=== PATIENT | male | born 1955 | race Caucasian/White ===

== ENCOUNTER 2019-09-24 15:02 | Emergency (ER) | payer SELFPAY ==
[2019-09-24] MEDS ORDERED: PANTOPRAZOLE SODIUM 40 MG VIAL IV ONE (16:11)
--- NOTE | 2019-09-24 16:16 | ER Document Report ---
ED GI/ - General Chief Complaint: GI Bleeding Stated Complaint: VOMITING BLOOD Time Seen by Provider: 09/24/19 15:49 Notes: 64-year-old male with hypertension and GERD presents to the emergency department for hematemesis just prior to arrival. EMS noted orthostatic hypotension when taking blood pressure from laying to standing. Patient states that he also noticed about 5 days ago he had a very dark black tarry stool, has been constipated, and then defecated "a small pebble today that was very dark". Is passing gas. No nausea or vomiting. Does have epigastric pain. No fevers or recent illness, does complain of significant dizziness and lightheadedness upon standing, no syncope. - Related Data Allergies/Adverse Reactions: No Known Allergies Allergy (Unverified 09/24/19 15:32) Past Medical History - Social History Smoking Status: Current Every Day Smoker Chew tobacco use (# tins/day): No Frequency of alcohol use: Heavy Drug Abuse: Marijuana Family History: None Patient has suicidal ideation: No Patient has homicidal ideation: No - Past Medical History Cardiac Medical History: Reports: Hx Hypercholesterolemia, Hx Hypertension Review of Systems - Review of Systems Constitutional: See HPI EENT: No symptoms reported Cardiovascular: See HPI Respiratory: See HPI Gastrointestinal: See HPI Genitourinary: See HPI Male Genitourinary: No symptoms reported Musculoskeletal: No symptoms reported Skin: No symptoms reported Hematologic/Lymphatic: No symptoms reported Neurological/Psychological: See HPI Physical Exam - Vital signs Vitals: Temp Pulse Resp BP Pulse Ox 97.5 F 98 20 109/72 100 09/24/19 15:03 09/24/19 15:03 09/24/19 15:03 09/24/19 15:03 09/24/19 15:03 - Notes Notes: PHYSICAL EXAMINATION: Reviewed vital signs and charting by RN GENERAL: Alert, interacts well. No acute distress. HEAD: Normocephalic, atraumatic. EYES: Pupils equal and round. Extraocular movements intact. ENT: Oral mucosa moist, tongue midline. NECK: Full range of motion. Trachea midline. LUNGS: Clear to auscultation bilaterally, no wheezes, rales, or rhonchi. No respiratory distress. HEART: Mild tachycardia with regular rhythm. No murmur ABDOMEN: soft, epigastric tenderness to palpation. No distention. Bowel sounds present EXTREMITIES: Moves all 4 extremities spontaneously. No edema, No cyanosis. PSYCH: Normal affect, normal mood. SKIN: Warm, dry, normal turgor. No rashes or lesions noted. Course - Re-evaluation Re-evalutation: 09/24/19 16:44 Patient is somewhat pale with pink conjunctivae. Patient gets acutely dyspneic even with shifting in the bed. Patient also gets extremely tachycardic even with pulling himself over onto his side up to the 140s. A guaiac stool was positive for blood. Hemoglobin 6.8. I have given him Protonix 80 mg IV bolus and will put him on a drip. Also, 2 units packed red blood cells have been ordered. Will initiate admission. 09/24/19 18:[address] Garsia, surgeon regional sales coordinator. Who states because the patient is an alcoholic he would be unable to do upper endoscopy with the risk for esophageal varices present. I called [facility] in [place] to initiate a transfer, spoke with Dr. Ferris, hospitalist, who accepted the patient for transfer. I have initiated a protonix continuous infusion and Dr. Ferris requests that we give patient a dose of octreotide. After patient gets 1 unit of packed red blood cells he is requesting that we give him a dose of Lasix if the patient is still in our unit. 09/24/19 20:10 Patient received his dose of octreotide and transport arrived at the bedside. Patient was still symptomatic and very dizzy and lightheaded, tachycardia in the 120s that spiked whenever he exerted himself even minimally on the bed. The first unit of packed red blood cells was just initiated 30 minutes prior to transport coming as there was a delay with the blood bank. At this time patient is stable for transfer to [facility]. - Vital Signs Vital signs: Temp Pulse Resp BP Pulse Ox 98.4 F 132 H 22 H 124/77 100 09/24/19 19:32 09/24/19 19:40 09/24/19 19:40 09/24/19 19:32 09/24/19 19:40 - Laboratory Result Diagrams: 09/24/19 15:20 09/24/19 15:20 Laboratory results interpreted by me: 09/24/19 09/24/19 09/24/19 15:20 15:20 15:20 WBC 10.8 H RBC 1.89 L Hgb 6.8 L Hct 19.7 L MCV 104 H MCH 35.7 H Sodium 135.7 L Carbon Dioxide 20 L BUN 30 H Glucose 162 H Calcium 8.1 L Total Protein 4.6 L Albumin 2.6 L Crossmatch See Detail Critical Care Note - Critical Care Note Total time excluding time spent on procedures (mins): 35 Comments: Critical care time spent obtaining history from patient or surrogate, discussions with consultants, development of treatment plan with patient or surrogate, evaluation of patient's response to treatment, examination of patient, ordering and performing treatments and interventions, ordering and review of laboratory studies, re-evaluation of patient's condition, ordering and review of radiographic studies and review of old charts for acute symptomatic anemia and an upper GI bleed Discharge - Discharge Clinical Impression: Acute GI bleeding Anemia Qualifiers: Anemia type: unspecified type Qualified Code(s): D64.9 - Anemia, unspecified Condition: Stable Disposition: [facility]
[2019-09-24 16:20] LABS: ABSOLUTE MONOCYTES (AUTO) 0.6 10^3/uL (0.1-1.4); ABSOLUTE NEUT (AUTO) 8.2 10^3/uL (1.7-8.2); BASOPHILS % (AUTO) 0.3 % (0-2); EOSINOPHILS % (AUTO) 0.2 % (0-6); HEMATOCRIT 19.7 % (37.9-51.0); LYMPHOCYTES % (AUTO) 18.1 % (13-45); MEAN CORPUSCULAR HEMOGLOBIN 35.7 pg (27.0-33.4); MEAN CORPUSCULAR HGB CONC 34.3 g/dL (32.0-36.0); MEAN CORPUSCULAR VOLUME 104 fl (80-97); MONOCYTES % (AUTO) 5.5 % (3-13); PLATELET COUNT 213 10^3/uL (150-450); RED BLOOD COUNT 1.89 10^6/uL (4.35-5.55); RED CELL DISTRIBUTION WIDTH 12.6 % (11.5-14.0); SEGMENTED NEUTROPHILS % (AUTO) 75.9 % (42-78); TOTAL CELLS COUNTED % (AUTO) 100 %; WHITE BLOOD COUNT 10.8 10^3/uL (4.0-10.5)
[2019-09-24 16:22] LABS: HEMOGLOBIN 6.8 g/dL (13.5-17.0)
[2019-09-24 16:25] LABS: ALBUMIN 2.6 g/dL (3.5-5.0); ALKALINE PHOSPHATASE 51 U/L (38-126); ANION GAP 10 (5-19); ASPARTATE AMINO TRANSFERASE 21 U/L (17-59); BILIRUBIN,DIRECT 0.1 mg/dL (0.0-0.4); BILIRUBIN,TOTAL 0.2 mg/dL (0.2-1.3); BLOOD UREA NITROGEN 30 mg/dL (7-20); CALCIUM 8.1 mg/dL (8.4-10.2); CARBON DIOXIDE 20 mmol/L (22-30); CHLORIDE 106 mmol/L (98-107); GLUCOSE 162 mg/dL (75-110); TOTAL PROTEIN 4.6 g/dL (6.3-8.2)
[2019-09-24 16:26] LABS: INTERNATIONAL RATION (INR) 1.06; PROTHROMBIN TIME 13.8 SEC (11.4-15.4)
[2019-09-24 16:27] LABS: PARTIAL THROMBOPLASTIN TIME 26.3 SEC (23.5-35.8)
[2019-09-24] MEDS ORDERED: NORMAL SALINE 250 ML IV PRN (16:43)
--- NOTE | 2019-09-24 16:52 | RADIOLOGY REPORT (SQ) ---
EXAM DESCRIPTION: CHEST 2 VIEWS COMPLETED DATE/TIME: 09/24/2019 4:24 pm REASON FOR STUDY: hemoptysis COMPARISON: None. EXAM PARAMETERS: NUMBER OF VIEWS: two views TECHNIQUE: Digital Frontal and Lateral radiographic views of the chest acquired. RADIATION DOSE: NA LIMITATIONS: none FINDINGS: LUNGS AND PLEURA: No opacities, masses or pneumothorax. No pleural effusion. MEDIASTINUM AND HILAR STRUCTURES: No masses or contour abnormalities. HEART AND VASCULAR STRUCTURES: Heart normal size. No evidence for failure. BONES: No acute findings. HARDWARE: None in the chest. OTHER: No other significant finding. IMPRESSION: NO ACUTE RADIOGRAPHIC FINDING IN THE CHEST. TECHNICAL DOCUMENTATION: JOB ID: [id number] [employer]- All Rights Reserved Reading location - IP/workstation name: [email or web address]
[2019-09-24] MEDS ORDERED: PANTOPRAZOLE SODIUM 40 MG VIAL IV PRN (18:10)
[2019-09-24] MEDS ORDERED: OCTREOTIDE ACETATE INJ/PF 100 MCG/1 ML SDV IV ONE (18:13)
--- NOTE | 2019-09-24 20:08 | EKG REPORT ---
SEVERITY:- ABNORMAL ECG - SINUS TACHYCARDIA RIGHT BUNDLE BRANCH BLOCK INFERIOR INFARCT, AGE INDETERMINATE : Confirmed by: Jessica Lucero MD 24-Sep-2019 20:07:16
[2019-09-24 20:32] VITALS: BP 124/77
== END 2019-09-24 20:11 | disposition short-term general hospital (02) ==
LOC: ER 15:02
DX: K92.2 Gastrointestinal hemorrhage, unspecified (principal); D64.9 Anemia, unspecified; K92.0 Hematemesis; R10.13 Epigastric pain; R00.0 Tachycardia, unspecified; R10.816 Epigastric abdominal tenderness; R06.00 Dyspnea, unspecified; R42 Dizziness and giddiness; I10 Essential (primary) hypertension; F17.200 Nicotine dependence, unspecified, uncomplicated; F12.10 Cannabis abuse, uncomplicated
CPT/HCPCS: 93005; 99291; 96375; 96365; 96366; 86900; 86901; 36415; 36430; 86850; 83690; 85025; 85610; 85730; 80053; 84484; 86920; 71046; 93010; P9016; J2354; C9113; J7050